=== PATIENT | female | born 1950 | race Two or more races ===

== ENCOUNTER 2022-05-24 14:03 | Emergency (ER) | payer OTHER ==
[~2022-05-24] VITALS: Ht 154.9 cm; Wt 74.8 kg
[2022-05-24] MEDS ORDERED: SYNTHROID88 MCG PO (14:31)
[2022-05-24] MEDS ORDERED: CRESTOR10 MG (14:32)
[2022-05-24] MEDS ORDERED: XOPENEX0.63 MG/3 IH (17:09)
[2022-05-24] MEDS ORDERED: TUSNEL LIQUID178 ML PO (17:09)
[2022-05-24] MEDS ORDERED: MEDROLPACK PO (17:09)
== END 2022-05-24 17:14 | disposition home or self-care (01) ==
LOC: ER 14:03
DX: J45.901 Unspecified asthma with (acute) exacerbation (principal); E07.9 Disorder of thyroid, unspecified; E78.6 Lipoprotein deficiency

== ENCOUNTER 2023-01-24 08:13 | Emergency (ER) | payer OTHER ==
[~2023-01-24] VITALS: Ht 154.9 cm; Wt 72.6 kg
[~2023-01-24 08:13] MED LIST: CRESTOR10 MG; MEDROLPACK PO; SYNTHROID88 MCG PO; TUSNEL LIQUID178 ML PO; XOPENEX0.63 MG/3 IH
[2023-01-24] MEDS ORDERED: NORVASC2.5 M1 PO (08:32)
== END 2023-01-24 12:57 | disposition home or self-care (01) ==
LOC: ER 08:13
DX: J45.909 Unspecified asthma, uncomplicated (principal); J06.9 Acute upper respiratory infection, unspecified; E03.9 Hypothyroidism, unspecified; I10 Essential (primary) hypertension; Z20.822 Contact with and (suspected) exposure to COVID-19